=== PATIENT | female | born 1965 | race Two or more races ===

== ENCOUNTER 2017-05-06 23:12 | Emergency (ER) | payer SELFPAY ==
[~2017-05-06] VITALS: Ht 154.9 cm; Wt 75.3 kg
[~2017-05-06 23:12] MED LIST: AFRIN15 ML NASAL; ALBUTEROL SULF8.5 GM INH; AZITHROMYCIN250 MG ORAL; AZITHROMYCIN250 MG PO; CIPROFLOXACIN500 M2 ORAL; CYCLOBENZAPRINE10 MG PO; FAMOTIDINE40 MG ORAL; IBUPROFEN600 MG ORAL; LEVOXYL125 MCG PO; MACROBID100 MG ORAL; METRONIDAZOLE500 MG ORAL; NORCO 5-325 TA1 EACH ORAL; PHENAZOPYRIDIN100 MG ORAL; PROMETHAZINE-C118 M1 ORAL; TRAMADOL HCL50 MG ORAL; VALIUM2 MG ORAL; VALIUM5 MG PO; VICODIN 5-5001 EACH ORAL
[2017-05-06 23:25] VITALS: BP 148/79
[2017-05-06] MEDS ORDERED: NEXAFED30 MG ORAL (23:46)
[2017-05-06] MEDS ORDERED: PROMETHAZINE-C118 M1 ORAL (23:46)
--- NOTE | 2017-05-06 23:46 | Emergency Room Report ---
History of Present Illness General Chief Complaint: Flu Like Symptoms Source: Patient Present Illness HPI Is a 51-year-old female with no past medical history. She presents with chief complaint of shortness of breath and around April 20, she came down with influenza. Symptom last about a week and was better. Then she caught a cold from her boyfriend. She went to see a in urgent care prescribed azithromycin, prednisone and albuterol. This was about 34 days ago. Symptom appear to be worsening.. Congested. Unable to breathe. Worse with lying flat. Also with sore throat. Worse with swallowing. Fell scratchy. No fever or chills. No nausea no vomiting. Allergies: Coded Allergies: No Known Allergies (Unverified , 05/01/12) Patient History Past Medical History: see triage record, old chart reviewed Past Surgical History: other Pertinent Family History: none Social History: Denies: smoking Last Menstrual Period: na Now: No Immunizations: other Reviewed Nursing Documentation: PMH: Agreed, PSxH: Agreed Nursing Documentation-PMH Hx Asthma: Yes Hx Diabetes: No - HYPOTHYROIDISM, HYSTERECTOMY Hx Gastrointestinal Problems: Yes - hysterectomy Hx Neurological Problems: No - thyroid, sciatica lower back Review of Systems Eye: Denies: eye pain, blurred vision ENT: Reports: nose congestion, throat pain, Denies: ear pain, throat swelling Respiratory: Reports: cough, shortness of breath Cardiovascular: Denies: chest pain, palpitations Gastrointestinal: Denies: abdominal pain, diarrhea, nausea, vomiting Musculoskeletal: Denies: back pain, joint pain Skin: Denies: rash Neurological: Denies: headache, numbness Endocrine: Denies: increased thirst, increased urine Hematologic/Lymphatic: Denies: easy bruising All Other Systems: negative except mentioned in HPI Physical Exam Vital Signs Date Time Temp Pulse Resp B/P (MAP) Pulse Ox O2 Delivery O2 Flow Rate FiO2 05/06/17 23:20 98.4 88 16 160/82 96 Room Air vitals with high blood pressure Sp02 EP Interpretation: reviewed, normal General Appearance: well appearing, no apparent distress, alert Head: normocephalic, atraumatic Eyes: bilateral eye PERRL, bilateral eye EOMI ENT: hearing grossly normal, normal pharynx, uvula midline - Enlarged, pharyngeal erythema, other - TM with fluid Neck: full range of motion, supple, no meningismus Respiratory: chest non-tender, lungs clear, normal breath sounds Cardiovascular #1: regular rate, rhythm, no murmur Gastrointestinal: normal bowel sounds, non tender, no mass, no organomegaly, no bruit, non-distended Musculoskeletal: back normal, gait/station normal, normal range of motion Psychiatric: mood/affect normal Skin: warm/dry Medical Decision Making Diagnostic Impression: Primary Impression: Upper respiratory infection Qualified Codes: J06.9 - Acute upper respiratory infection, unspecified ER Course Patient with a viral illness. She's not wheezing. I see no need for breathing treatment. Patient reassured. No evidence of bacterial Infection. No evidence of pneumonia, sinus infection or sepsis. We'll discharge home. Last Vital Signs Date Time Temp Pulse Resp B/P (MAP) Pulse Ox O2 Delivery O2 Flow Rate FiO2 05/06/17 23:25 88 16 Room Air 05/06/17 23:25 98.2 148/79 98 Status: improved Disposition: HOME, SELF-CARE Condition: Stable Scripts Pseudoephedrine Hcl* (NEXAFED*) 30 Mg Tablet 30 MG ORAL Q6H Y for congestion, #30 TAB Prov: DEL WILSON M.D. 05/06/17 Codeine/Promethazine Hcl* (PROMETHAZINE-CODEINE SYRUP*) 118 Ml Syrup 5 ML ORAL Q6H Y for For Cough, #120 ML 0 Refills Prov: DEL WILSON M.D. 05/06/17 Additional Instructions: Followup with your DrMargie in 7 days. Increase fluid. Saltwater gargle. Return if symptom worsen. DEL WILSON M.D. May 06, 2017 23:46
[2017-05-06 23:50] VITALS: BP 139/78
[2017-05-06 23:55] VITALS: BP 139/78
== END 2017-05-06 23:55 | disposition home or self-care (01) ==
LOC: EMR 23:20
DX: J06.9 Acute upper respiratory infection, unspecified (principal); J45.909 Unspecified asthma, uncomplicated; E03.9 Hypothyroidism, unspecified; M54.40 Lumbago with sciatica, unspecified side; Z90.710 Acquired absence of both cervix and uterus
CPT/HCPCS: 99283

== ENCOUNTER 2017-11-03 09:52 | Day surgery (SDC) | payer OTHER ==
[2017-11-03] VITALS (10 sets, daily range): BP systolic 105–128; BP diastolic 61–91
[~2017-11-03] VITALS: Ht 152.4 cm; Wt 77.1 kg
--- NOTE | 2017-11-03 06:55 | Pre-Procedure Note/Attestation ---
Pre-Procedure Note/Attestation Complete Prior to Procedure Planned Procedure: left Procedure Narrative: left trigger thumb release, dequervains release Indications for Procedure Pre-Operative Diagnosis: left trigger thumb, dequervain tenosynovitis Attestation I attest that I discussed the nature of the procedure; its benefits; risks and complications; and alternatives (and the risks and benefits of such alternatives ), prior to the procedure, with the patient (or the patient's legal environmental marketing representative). I attest that, if there was a reasonable possibility of needing a blood transfusion, the patient (or the patient's legal environmental marketing representative) was given the [facility] standardized written summary, pursuant to the [place] Blood Safety Act ([place] Health and Safety Code # 1645, as amended). I attest that I re-evaluated the patient just prior to the surgery and that there has been no change in the patient's H&P, except as documented below: NONE Jason Ace MD Nov 03, 2017 06:55
[~2017-11-03 09:52] MED LIST changes: +NEXAFED30 MG ORAL; +ceFAZolin 1gm in D5W 55ml IVP ONE; +celeBREX 200mg Cap **SURGERY PATIENTS ONLY ORAL SCH; +oxyCONTIN 20mg tab ORAL SCH
--- NOTE | 2017-11-03 10:29 | Anethesia Preoperative Eval ---
Anesthesia Pre-op PMH/ROS General Date of Evaluation: Nov 03, 2017 Anesthesiologist: Pranay ASA Score: ASA 2 Mallampati Score Class I : Soft palate, uvula, fauces, pillars visible Class II: Soft palate, uvula, fauces visible Class III: Soft palate, base of uvula visible Class IV: Only hard plate visible Mallampati Classification: Class II Surgeon: Db Diagnosis: Left thumb trigger finger Surgical Procedure: Left thumb trigger finger release, and left de quervains release Anesthesia History: none Family History: no anesthesia problems Allergies: Coded Allergies: No Known Allergies (Unverified , 11/02/17) Medications: see eMAR Past Medical History Cardiovascular: Reports: other - HLD; Denies: HTN, CAD, PA, valve dz, arrhythmia Pulmonary: Reports: asthma; Denies: COPD, CODY, other Gastrointestinal/Genitourinary: Denies: GERD, CRI, ESRD, other Neurologic/Psychiatric: Reports: depression/anxiety; Denies: dementia, CVA, TIA, other Endocrine: Reports: DM, hypothyroidism; Denies: steroids, other HEENT: Denies: cataract (L), cataract (R), glaucoma, EAGLE (L), EAGLE (R), other Hematology/Immune: Denies: anemia, DVT, bleeding disorder, other Musculoskeletal/Integumentary: Denies: OA, RA, DJD, DDD, edema, other PSxH Narrative: c/s, EFLIX Anesthesia Pre-op Phys. Exam Physician Exam see chart Constitutional: NAD Cardiovascular: RRR Respiratory: CTA Airway Exam Mallampati Score: Class II MO: full ROM: full Teeth: intact Anesthesia Pre-op A/P Labs see chart Studies Pre-op Studies: EKG - sr Risk Assessment & Plan Assessment: ASA II Plan: GA Status Change Before Surgery: No Pre-Antibiotics Drug: Ancef 1g Given Within 1 Hr of Incision: Yes Tish Park MD Nov 03, 2017 10:29
[2017-11-03] MEDS ORDERED: Bupivacaine 0.5% Inj 30 ml vial INJ ONE (10:46)
[2017-11-03] MEDS ORDERED: Lidocaine 1% Plain 30 ml INJ ONE (10:46)
[2017-11-03] MEDS ORDERED: Propofol 200mg/20ml IV ONE (10:54)
[2017-11-03] MEDS ORDERED: Lidocaine 1% MPF 10mg/ml 5ml ONE (10:54)
[2017-11-03] MEDS ORDERED: fentaNYL 100 mcg/2 mL IV ONE (10:55)
[2017-11-03] MEDS ORDERED: Midazolam 2mg/2ml Inj ONE (10:55)
[2017-11-03] MEDS ORDERED: celeBREX 200mg Cap **SURGERY PATIENTS ONLY ORAL ONE (11:08)
[2017-11-03] MEDS ORDERED: oxyCONTIN 20mg tab ORAL ONE (11:08)
[2017-11-03] MEDS ORDERED: NS Irrig 1000ml ONE (11:30)
[2017-11-03] MEDS ORDERED: LR 1000ml ONE (11:30)
[2017-11-03] MEDS ORDERED: Sterile Water Irrig 1000ml IRRIG ONE (11:30)
[2017-11-03] MEDS ORDERED: Tylenol #3 tab (300mg/30mg) ORAL PRN (11:45)
[2017-11-03] MEDS ORDERED: Morphine Sulfate 2mg/ml Inj IVP PRN (11:45)
[2017-11-03] MEDS ORDERED: D5 1/2NS 1,000 ML IV SCH (11:45)
[2017-11-03] MEDS ORDERED: Norco 5mg/325mg tab ORAL PRN (11:45)
[2017-11-03] MEDS ORDERED: Ketorolac 30mg Inj ONE (12:06)
--- NOTE | 2017-11-03 12:17 | Brief Operative Note ---
Immediate Post Operative Note Operative Note Chief Complaint: left hand pain Pre-op Diagnosis: left trigger thumb, dequervain tenosynovitis Procedure: left trigger thumb release, dequervain release Post-op Diagnosis: same as pre-op Findings: consistent w/pre-op dx studies Surgeon: md mario Music Teacher: melissa bob Anesthesiologist: md jessica Anesthesia: general Specimen: none Complications: none Condition: stable Fluids: ns Estimated Blood Loss: minimal Drains: none Implant(s) used?: No Luna Bob Nov 03, 2017 12:17
--- NOTE | 2017-11-03 12:26 | Immediate Post-Op Evaluation ---
Immediate Post-Op Evalulation Immediate Post-Op Evalulation Procedure: Left thumb trigger finger release, and left de quervain release Date of Evaluation: Nov 03, 2017 Time of Evaluation: 12:27 IV Fluids: 600 Blood Products: 0 Estimated Blood Loss: min Urinary Output: 0 Blood Pressure Systolic: 113 Blood Pressure Diastolic: 68 Pulse Rate: 77 Respiratory Rate: 12 O2 Sat by Pulse Oximetry: 97 Temperature (Fahrenheit): 97.5 Pain Score (1-10): 0 Nausea: No Vomiting: No Complications 0 Patient Status: awake, reacts, patent, none Hydration Status: adequate Drug: Ancef 1g Given Within 1 Hr of Incision: Yes Time Given: 11:35 Tish Park MD Nov 03, 2017 12:26
--- NOTE | 2017-11-03 12:27 | 48 Hour Post Anesthesia Eval ---
Post Anesthesia Evaluation Procedure: Left thumb trigger finger release, and left de quervain release Date of Evaluation: Nov 03, 2017 Airway: patent Nausea: No Vomiting: No Pain Intensity: 0 Hydration Status: adequate Cardiopulmonary Status: at baseline Mental Status/LOC: patient returned to baseline Post-Anesthesia Complications: 0 Follow-up care needed: ready to discharge Tish Park MD Nov 03, 2017 12:27
--- NOTE | 2017-11-03 17:00 | Operative Note - Dictated ---
DATE OF OPERATION: 11/03/2017 PREOPERATIVE DIAGNOSES: 1. Left hand de Quervain tenosynovitis. 2. Left hand trigger thumb. POSTOPERATIVE DIAGNOSES: 1. Left hand de Quervain tenosynovitis. 2. Left hand trigger thumb. PROCEDURE: 1. Left hand de Quervain release. 2. Left hand trigger thumb release. SURGEON: Jason Ace M.D. PROPELLER ENGINEER: Luna Brunson PA-C. ANESTHESIOLOGIST: Dr. Pires. ANESTHESIA: LMA anesthesia. ESTIMATED BLOOD LOSS: Less than 20 mL. COMPLICATIONS: None. BRIEF HISTORY: The patient is a pleasant 52-year-old female, who has had repetitive trauma injury to left hand and developed left trigger thumb and left de Quervain tenosynovitis. After full discussion of risks and benefits of the surgery and complications associated with it including infection, bleeding, neurovascular complication, possibility of continued pain, possibility of sensory deficit, possibility of neuralgia, and other complications that may arise from surgery, she opted for surgical treatment as described above. OPERATIVE PROCEDURE: The patient was brought to the operative table and was placed supine. All pressure points were well padded. General LMA anesthesia was induced. The left hand was prepped and draped in usual sterile fashion, was exsanguinated, and tourniquet was inflated to 275 mmHg. First, attention was given to de Quervain tenosynovitis. The first dorsal compartment was identified. A transverse incision was made over the skin, this was very superficial so that it does not damage the superficial radial nerves. The subcutaneous dissection was performed using scissors and retractors were placed in. The first dorsal compartment was identified and this was released using knife and scissors. The two tendons in the first dorsal compartment were then brought out using a hemostat and the tendons were examined. There were no tears in tendon. There was extensive fluid in the first dorsal compartment pointing to tenosynovitis. Tenosynovectomy was performed. Wounds were thoroughly irrigated. The area was injected with 0.5% Marcaine plain. The wound was closed using 3-0 nylon interrupted sutures. At this point, care was given to the trigger thumb. The area of the lobito was identified. A 1.5-cm incision was made volarly. The incision was very superficial to avoid damage to the sensory nerve. The subcutaneous dissection was performed using scissors and the lobito was identified. At this point, the lobiot was then released distally and proximally and the tendons were brought out of the wound using a hemostat. The tendons were examined and there were no tears. The wounds were thoroughly irrigated using copious amount of fluid and the area was injected with 0.5% Marcaine plain and 3-0 nylon sutures were placed in to close the skin. Sterile dressing was applied and the patient tolerated procedure well without any complication. She was taken to recovery room in stable condition. All lap counts and instrument counts were correct. Preoperative antibiotics were given prior to surgery. Jason Ace M.D. DR: Martin JOB#: [id number] CC:
== END 2017-11-03 14:20 | disposition home or self-care (01) ==
LOC: SUR 09:52
DX: M65.4 Radial styloid tenosynovitis [de Quervain] (principal); M65.312 Trigger thumb, left thumb; E78.5 Hyperlipidemia, unspecified; J45.909 Unspecified asthma, uncomplicated; E32.9 Disease of thymus, unspecified; F41.9 Anxiety disorder, unspecified; E11.9 Type 2 diabetes mellitus without complications; E03.9 Hypothyroidism, unspecified; Z90.710 Acquired absence of both cervix and uterus
CPT/HCPCS: 25000; 26055; J0690; J1885; J2001; J2250; J2704; J3010; J3490; J7120; 94003; 94150